=== PATIENT | female | born 1980 | race Caucasian/White ===

== ENCOUNTER 2022-08-20 07:37 | Emergency (ER) | payer BC ==
[~2022-08-20] VITALS: Ht 167.6 cm; Wt 70.0 kg
[2022-08-20 08:34] LABS: CLARITY URINE CLEAR (CLEAR); COLOR URINE YELLOW (YELLOW); KETONES URINE 1+ (NEGATIVE); LEUKOCYTE ESTERASE URINE NEGATIVE (NEGATIVE); NITRITE URINE NEGATIVE (NEGATIVE); OCCULT BLOOD URINE TRACE (NEGATIVE); PROTEIN URINE TRACE (NEGATIVE); SPECIFIC GRAVITY URINE 1.013 (1.005-1.030)
[2022-08-20] MEDS ORDERED: CHLORDIAZEPOXIDE 25MG CAPSULE PO ONE (08:45)
[2022-08-20 09:06] LABS: BASOPHILS % 0.8 % (0.0-2.0); EOSINOPHILS % 1.1 % (0.0-5.0); HEMATOCRIT. 42.7 % (36.0-48.0); HEMOGLOBIN. 14.7 g/dL (12.0-16.0); MEAN CORPUSCULAR HEMOGLOBIN 33.3 pg (28.0-32.0); MEAN CORPUSCULAR VOLUME 96.7 fL (81.0-99.0); MEAN PLATELET VOLUME 7.3 fl (7.4-10.4); MONOCYTES % 6.8 % (2.0-8.0); NEUTROPHILS % 60.3 % (40.0-76.0); PLATELET 316 x1000/uL (130-400); RED BLOOD CELL COUNT 4.42 mill/uL (4.2-5.4)
[2022-08-20 09:11] LABS: CHLORIDE 107 mEq/L (98-107)
[2022-08-20 09:34] VITALS: BP 111/73
== END 2022-08-20 09:36 | disposition home or self-care (01) ==
LOC: ER 08:37
DX: F10.90 Alcohol use, unspecified, uncomplicated (principal); Y90.9 Presence of alcohol in blood, level not specified
CPT/HCPCS: 36415; 80053; 81003; 81025; 85025; 99283